=== PATIENT | female | born 1990 | race Hispanic/Latino ===

== ENCOUNTER → 2016-09-23 | Outpatient (CLI) | payer OTHER | END | disposition home or self-care (01) | LOC: LAB 17:31 | PROVIDERS: ATTEND Obstetrics & Gynecology | DX: O20.0 Threatened abortion (principal) ==

== ENCOUNTER → 2017-09-03 | Outpatient (CLI) | payer OTHER | LOC: LAB.O 08:50 | PROVIDERS: ATTEND Obstetrics & Gynecology | DX: Z34.83 Encounter for supervision of other normal pregnancy, third trimester (principal); Z3A.33 33 weeks gestation of pregnancy ==

== ENCOUNTER 2017-10-28 12:52 | Emergency (ER) | payer OTHER ==
[2017-10-28] MEDS ORDERED: cefTRIAXone SODIUM 1 GM VIAL IM ONE (13:34)
[2017-10-28] MEDS ORDERED: KETOROLAC TROMETHAMINE INJ 60 MG/2 ML VIAL IM ONE (13:34)
[2017-10-28] MEDS ORDERED: KETOROLAC TROMETHAMINE INJ 30 MG/ML VIAL IV ONE (13:37)
[2017-10-28] MEDS ORDERED: cefTRIAXone SODIUM 1 GM in SODIUM CHL 0.9% 50ML MIN-BAG+ 50 ML IVPB ONE (13:37)
--- NOTE | 2017-10-28 13:40 | ED.PDOC ---
History of Present Illness - General Chief Complaint: General Stated Complaint: righ side facial pain and swelling Time Seen by Provider: 10/28/17 13:18 Source: patient Exam Limitations: no limitations - History of Present Illness Initial Comments: KNOWN H/O R FACE/JAW TERATOMA, SEEN ENT IN [facility]. PER PT, THEY SAID IS NON- OPERATIVE SINCE ENTANGLED IN NERVES, THUS IS SX MGMT. SHE STATES IT WILL FLARE UP LIKE THIS EVERY SO OFTEN AND CAUSE PAIN, FOR WHICH THEY RX AMOXIL FOR POSSIBLE MILD IFXN. RECURRINGLY PAINFUL STARTING TODAY. PT STATES SHE HAS NORCO AT HOME BUT DOESN' T LIKE TO TAKE SINCE SHE HAS AN INTOLERANCE TO NARCOTICS, INCLUDING ULTRAM WELL. NO SOB. NO DYSPHAGIA. Severity: moderate Improving Factors: nothing Worsening Factors: other - PALPATION Associated Symptoms: denies symptoms Allergies/Adverse Reactions: Allergies NO KNOWN ALLERGY Allergy (Verified 10/28/17 13:10) Home Medications: Ambulatory Orders Amoxicillin & Pot Clavulanate [Augmentin] 875 mg PO BID #14 tab 10/28/17 Methylprednisolone [Medrol Dose Ayush] 4 mg PO DAILY #1 tab 10/28/17 Review of Systems - Review of Systems Constitutional: Denies: chills, fever - THOUGH FELT FEVERISH AND HOT THIS MORNING. EENTM: States: other - R JAW MANDIBULAR PAIN. Denies: eye pain, blurred vision , ear pain, nose pain, throat swelling Respiratory: Denies: cough, short of breath, stridor Cardiology: Denies: chest pain, palpitations Gastrointestinal/Abdominal: States: no symptoms reported Genitourinary: States: no symptoms reported Musculoskeletal: States: no symptoms reported Skin: States: no symptoms reported. Denies: rash Neurological: Denies: headache, numbness, paresthesia Endocrine: Denies: excessive sweating, intolerance to cold, intolerance to heat Hematologic/Lymphatic: States: swollen glands - R JAW. Denies: easy bleeding, easy bruising All other Systems: Reviewed and Negative Past Medical History (General) - Patient Medical History Hx Seizures: No Hx Stroke: No Hx Dementia: No Hx Asthma: No Hx of COPD: No Hx Cardiac Disorders: No Hx Congestive Heart Failure: No Hx Pacemaker: No Hx Hypertension: No Hx Thyroid Disease: No Hx Diabetes: No Hx Gastroesophageal Reflux: No Hx Renal Disease: No Hx Cancer: No Hx of HIV: No Hx Hepatitis C: No Hx MRSA: No Surgical History: tonsillectomy, other - Vaccination History Hx Tetanus, Diphtheria Vaccination: Yes Hx Influenza Vaccination: No Hx Pneumococcal Vaccination: No - Social History Hx Tobacco Use: No Hx Alcohol Use: No Hx Substance Use: No Hx Substance Use Treatment: No Hx Depression: No Hx Physical Abuse: No Hx Emotional Abuse: No Hx Suspected Abuse: No - Female History Hx Last Menstrual Period: 02/08/15 Patient : Yes Expected Date of Delivery:: 11/12/15 Hx Gestational Age: 19 Family Medical History - Family History Mother Family History: Unknown Living Status: Still Living Hx Family Hypertension: Yes Physical Exam - Physical Exam General Appearance: Alert, Well Groomed Eye Exam: bilateral normal Ears, Nose, Throat: hearing grossly normal, normal pharynx, other - R MANDIBULAR JAW TTP. VISUALLY IT IS SYMMETRICAL WITH L JAW AND NOT ENLARGED. R BUCCAL MUCOSA NTTP, NL APPEARANCE. TEETH NTTP. Neck: full range of motion, normal inspection, tender lateral - R Respiratory: chest non-tender, lungs clear, normal breath sounds, no respiratory distress Cardiovascular/Chest: normal peripheral pulses, regular rate, rhythm, no JVD, no murmur Peripheral Pulses: radial,right: 2+, radial,left: 2+ Gastrointestinal/Abdominal: normal bowel sounds, soft Extremity: normal range of motion, normal inspection Neurologic: alert, normal mood/affect Skin Exam: normal color, warm/dry Lymphatic: other - R CERVICAL LAD. NO ENLARGED NODES. Progress - Progress Progress: 10/28/17 14:20 CBC NO LEUKOCYTOSIS. MILD ANEMIA, HYPOCHROMIC, MICROCYTIC, POSSIBLY MILD ANEMIA OF CHRONIC DISEASE FROM TERATOMA. NO CLEAR S/SX OF IFXN HOWEVER HOME ON AMOXIL FOR POSSIBLE MICROINFECTIOUS EXACERBATION, AND MEDROL DOSE PACK FOR INFLAMMATION. F/U W/ PCP DR APARICIO TO ENSURE PAIN DECREASING. NO IMAGING INDICATED TODAY THERE IS NO AIRWAY OR ESPOHAGEAL COMPROMISE. Departure - Departure Clinical Impression: Jaw pain, non-TMJ, Teratoma Disposition: Discharge to Home or Self Care Condition: Good Departure Forms: ED Discharge - Pt. Copy, Patient Portal Self Enrollment Diet: resume usual diet Activity: increase activity as tolerated Referrals: Pj Aparicio MD [Primary Care Provider] - 1 Week Prescriptions: Amoxicillin & Pot Clavulanate [Augmentin] 875 mg PO BID #14 tab Methylprednisolone [Medrol Dose Ayush] 4 mg PO DAILY #1 tab Home Medications: Ambulatory Orders Amoxicillin & Pot Clavulanate [Augmentin] 875 mg PO BID #14 tab 10/28/17 Methylprednisolone [Medrol Dose Ayush] 4 mg PO DAILY #1 tab 10/28/17
[2017-10-28] MEDS ORDERED: cefTRIAXone SODIUM 1 GM VIAL ONE (13:52)
[2017-10-28] MEDS ORDERED: SODIUM CHL 0.9% 50ML MIN-BAG+ 50 ML IVPB ONE (13:53)
[2017-10-28 15:18] VITALS: BP 108/72; TEMP 98; O2SAT 96
== END 2017-10-28 14:50 | disposition home or self-care (01) ==
LOC: ER 12:52
DX: D48.7 Neoplasm of uncertain behavior of other specified sites (principal); R68.84 Jaw pain
CPT/HCPCS: 36415; 85025; J0696; J1885; J7050

== ENCOUNTER 2019-04-18 23:59 | Emergency (ER) | payer OTHER ==
--- NOTE | 2019-04-19 00:16 | ED.PDOC ---
History of Present Illness - General Stated Complaint: L arm pain Time Seen by Provider: 04/19/19 00:01 Source: patient Exam Limitations: no limitations - History of Present Illness Initial Comments: 28-year-old female presents to the emergency department complaining of left arm pain onset last night but went away during the day today and then started again tonight when she went to lay down. The pain starts in her left shoulder and radiates down to her entire arm. She reports tingling in her fingers. Denies any known trauma. Pain is worsened with movements and described as sharp. She did take 1 ibuprofen prior to arrival without significant improvement of her symptoms, however it went away after she took a hot shower last night. Allergies/Adverse Reactions: Allergies NO KNOWN ALLERGY Allergy (Verified 10/28/17 13:10) Home Medications: Ambulatory Orders Amoxicillin & Pot Clavulanate [Augmentin] 875 mg PO BID #14 tab 10/28/17 Methylprednisolone [Medrol Dose Ayush] 4 mg PO DAILY #1 tab 10/28/17 Naproxen [Naproxen EC] 500 mg PO Q12H PRN #20 tab 04/19/19 Orphenadrine Citrate [Orphenadrine Citrate ER] 100 mg PO Q12HR PRN #20 tab 04/19/19 Review of Systems - Review of Systems Constitutional: Denies: chills, fever EENTM: Denies: nose congestion, throat pain Respiratory: Denies: cough, short of breath Cardiology: Denies: chest pain, palpitations Gastrointestinal/Abdominal: Denies: abdominal pain, nausea, vomiting Genitourinary: Denies: dysuria, hematuria Musculoskeletal: States: joint pain - L elbow and shoulder, muscle pain - L arm Skin: Denies: lesions, rash Neurological: States: paresthesia, tingling. Denies: headache, weakness Past Medical History (General) - Patient Medical History Hx Seizures: No Hx Stroke: No Hx Dementia: No Hx Asthma: No Hx of COPD: No Hx Cardiac Disorders: No Hx Congestive Heart Failure: No Hx Pacemaker: No Hx Hypertension: No Hx Thyroid Disease: No Hx Diabetes: No Hx Gastroesophageal Reflux: No Hx Renal Disease: No Hx Cancer: No Hx of HIV: No Hx Hepatitis C: No Hx MRSA: No - Vaccination History Hx Tetanus, Diphtheria Vaccination: Yes Hx Influenza Vaccination: No Hx Pneumococcal Vaccination: No - Social History Hx Tobacco Use: No Hx Alcohol Use: No Hx Substance Use: No Hx Substance Use Treatment: No Hx Depression: No Hx Physical Abuse: No Hx Emotional Abuse: No Hx Suspected Abuse: No - Female History Hx Last Menstrual Period: 02/08/15 Patient : Yes Expected Date of Delivery:: 11/12/15 Hx Gestational Age: 19 Family Medical History - Family History Mother Family History: Unknown Living Status: Still Living Hx Family Hypertension: Yes Physical Exam - Physical Exam General Appearance: Alert, Well Developed, Well Nourished Eyes, Ears, Nose, Throat Exam: PERRL/EOMI, other - Previous surgical scars to the posterior pharynx that are well-healed. Otherwise no acute changes. Neck: non-tender, full range of motion, supple, normal inspection Cardiovascular/Respiratory: regular rate, rhythm, no M/R/G, normal peripheral pulses Back Exam: normal inspection Shoulder Exam: normal inspection, no evidence of injury, normal ROM - with pain, pain - with palpation of the anterior shoulder, soft tissue tenderness - L trapezious muscle with spasm Elbow/Forearm Exam: normal inspection, no evidence of injury, normal ROM - with pain, pain - with palpation of medial and lateral epicondyles Wrist Exam: normal inspection, no evidence of injury, normal ROM, pain Hand Exam: normal inspection, no evidence of injury, normal ROM Neuro/Tendon: normal motor functions, other - Hyperasthesia to light touch Mental Status: alert, oriented x 3 Skin Exam: normal color, warm/dry Comments: Vital Signs - 24 hr 04/19/19 00:03 Temperature 98.4 F Pulse Rate [ 74 pulse ox] Respiratory 18 Rate Blood Pressure 117/71 [Right Arm] O2 Sat by Pulse 99 Oximetry Progress - Progress Progress: 04/19/19 01:13 Patient recheck she is feeling better after the pain medication. I discussed with the patient the possibility of and asked us to be able to provide urine for test however she states that there is 0 chance that she is her, period was 2 weeks ago and she has had a tubal ligation. I informed her that the medications I am giving to be harmful if she were and she has voiced understanding of this and wants to continue with the treatment without testing. All imaging results were discussed with the patient and family along with plan for discharge home with a muscle relaxant and anti-inflammatory medication. She is instructed to take the medications as directed and to follow-up with her primary care physician as she may need a repeat MRI of her neck if the pain and symptoms persist. The patient has voiced understanding of this and all questions and concerns were addressed. - Results/Orders Results/Orders: 04/19/19 0018 EKG interpreted by myself as sinus rhythm rate 77. Normal axis. Normal intervals. No ST elevation and nonspecific ST-T changes. Left shoulder XR: IMPRESSION: Normal 2 view left shoulder radiographic series. Electronically signed by: Coleman Montoya MD 04/19/2019 12:36 AM PLAYGROUND EQUIPMENT ERECTOR - L elbow XR IMPRESSION: No acute osseous findings. Electronically signed by: Rk Richardson MD 04/19/2019 12:35 AM PLAYGROUND EQUIPMENT ERECTOR CT Cervical Spine: IMPRESSION: No acute cervical spine fracture. Reversal of cervical lordosis as well as anterolisthesis of C5 on C6. Partial visualization of fat-containing lesion in the right submandibular region, likely previously described teratoma. Electronically signed by: Shreyas French DO 04/19/2019 12:54 AM PLAYGROUND EQUIPMENT ERECTOR Departure - Departure Clinical Impression: Left arm pain, Paresthesias Strain of left trapezius muscle Qualifiers: Encounter type: initial encounter Qualified Code(s): S46.812A - Strain of other muscles, fascia and tendons at shoulder and upper arm level, left arm, initial encounter Time of Disposition: :16 Disposition: Discharge to Home or Self Care Condition: Good Instructions: DI for Arm Pain, Muscle Spasms (DC) Referrals: Pj Aparicio MD [Primary Care Provider] - 1-2 Days Prescriptions: Orphenadrine Citrate [Orphenadrine Citrate ER] 100 mg PO Q12HR PRN #20 tab PRN Reason: Pain Naproxen [Naproxen EC] 500 mg PO Q12H PRN #20 tab PRN Reason: Pain Home Medications: Ambulatory Orders Amoxicillin & Pot Clavulanate [Augmentin] 875 mg PO BID #14 tab 10/28/17 Methylprednisolone [Medrol Dose Ayush] 4 mg PO DAILY #1 tab 10/28/17 Naproxen [Naproxen EC] 500 mg PO Q12H PRN #20 tab 04/19/19 Orphenadrine Citrate [Orphenadrine Citrate ER] 100 mg PO Q12HR PRN #20 tab 04/19/19 Additional Instructions: Take all medications as directed. Use [id number] topical applications as well as needed for pain. Use ice and heat as needed. Call your primary care physician tomorrow to schedule follow-up appointment as soon as possible. Return to the emergency department for any significant worsening of symptoms or other concerns.
[2019-04-19] MEDS: HYDROcodone 5MG/APAP 325MG 1 EA TAB PO ONE (00:19)
[2019-04-19 00:30] VITALS: BP 117/71; TEMP 98.4; O2SAT 99
--- NOTE | 2019-04-19 00:37 | RAD ---
2 VIEWS LEFT SHOULDER RADIOGRAPHIC SERIES. INDICATIONS: Pain. COMPARISONS: No comparisons are available. FINDINGS: No fractures or dislocations. Left lung is clear. No left pleural effusion or left apical pneumothorax. IMPRESSION: Normal 2 view left shoulder radiographic series. Electronically signed by: Coleman Montoya MD 04/19/2019 12:36 AM FILEMAKER DEVELOPER
--- NOTE | 2019-04-19 00:37 | RAD ---
CLINICAL HISTORY: pain COMPARISON: None. TECHNIQUE: XR ELBOW 3 VIEWS 04/19/2019 12:11 AM INJECTION MACHINE OPERATOR FINDINGS: There is no fracture. Joint spaces are preserved. Soft tissues are unremarkable. IMPRESSION: No acute osseous findings. Electronically signed by: Rk Richardson MD 04/19/2019 12:35 AM INJECTION MACHINE OPERATOR
--- NOTE | 2019-04-19 00:56 | CT ---
EXAM DESCRIPTION: CT CERVICAL SPINE WITHOUT CONTRAST CLINICAL HISTORY: 28 years Female l arm pain and paresthesias COMPARISON: MRI soft tissue neck without contrast dated February 02, 2016 TECHNIQUE: Multiplanar imaging through the cervical spine without contrast. This exam was performed according to our departmental dose-optimization program, which includes automated exposure control, adjustment of the mA and/or kV according to patient size and/or use of iterative reconstruction technique. DLP: 348 mGy*cm FINDINGS: No fracture. Small anterolisthesis of C5 on C6. Reversal of cervical lordosis centered at C6. Disc spaces are preserved. Paraspinal soft tissues are unremarkable. Partial visualization of fat-containing lesion in the right submandibular region, likely previously described teratoma. Visualized thyroid is normal. IMPRESSION: No acute cervical spine fracture. Reversal of cervical lordosis as well as anterolisthesis of C5 on C6. Partial visualization of fat-containing lesion in the right submandibular region, likely previously described teratoma. Electronically signed by: Shreyas French DO 04/19/2019 12:54 AM PHARMACOVIGILANCE SPECIALIST
[2019-04-19] MEDS: KETOROLAC TROMETHAMINE INJ 60 MG/2 ML VIAL IM ONE (01:15)
== END 2019-04-19 01:14 | disposition home or self-care (01) ==
LOC: ER 23:59
DX: S46.812A Strain of other muscles, fascia and tendons at shoulder and upper arm level, left arm, initial encounter (principal); R20.2 Paresthesia of skin; X58.XXXA Exposure to other specified factors, initial encounter; Y92.9 Unspecified place or not applicable
CPT/HCPCS: 72125; 73030; 73080; 93005; J1885